=== PATIENT | male | born 2005 | race Caucasian/White ===

== ENCOUNTER 2023-05-14 15:58 | Emergency (ER) | payer OTHER, SELFPAY ==
[2023-05-14] VITALS (8 sets, daily range): BP systolic 138–183; BP diastolic 82–121; PULSE 82–104; RESP 16–20; TEMP 36.3; O2SAT 96–100
--- NOTE | ~2023-05-14 | XR_ITS ---
EXAMINATION: XR chest 2V Exam Date/Time: 05/14/2023 17:50 [employer] HISTORY: cough x3 weeks Comparison: None. RESULT: Lines, tubes, and devices: None. Lungs and pleura: Low volumes with crowding. Lordotic positioning. Lungs otherwise clear. Cardiomediastinal silhouette: Normal. Other: No acute osseous or upper abdominal finding. IMPRESSION: No acute cardiopulmonary process. Reviewed, dictated and finalized at location K. [employer]
--- NOTE | 2023-05-14 17:31 | ECG_ITS ---
Measurements Intervals [place] Rate: 86 P: 41 RI: 159 QRS: -26 QRSD: 102 T: 62 QT: 344 QTc: 412 Interpretive Statements SINUS RHYTHM INCOMPLETE RIGHT BUNDLE BRANCH BLOCK POOR R WAVE PROGRESSION, ANTERIOR LEADS BORDERLINE ECG NO PREVIOUS ECG AVAILABLE FOR COMPARISON Electronically Signed On 05-15-2023 6:12:46 ONCOLOGY NAVIGATOR by Cain Phillips D.O.
--- NOTE | 2023-05-14 17:31 | ED.URI ---
HPI - URI/Sore Throat General Chief Complaint: Upper Respiratory Infection Stated Complaint: cough/htn Time Seen by Provider: 05/14/23 17:03 History of Present Illness HPI Narrative: 16-year-old male presents with his father for evaluation for productive cough, nasal congestion and sore throat for 3 weeks. Patient states 3 weeks ago, his symptoms developed and then improved for a week. States the symptoms returned he was evaluated by a Doctor online and was prescribed an inhaler, benzonatate and Augmentin. He states he has been taking these medications for a week with some improvement, however still does not feel well. Last dose of Augmentin was this morning. He went to the [facility] this morning and was advised to come to the ED for elevated blood pressure reading of 180 systolic. Patient's father states that the patient has some issues with anxiety and panic attacks and belives that the elevated readings are secondary to this. He denies chest pain, fevers, abdominal pain, nausea, vomiting, diarrhea, urinary complaints. He does report intermittent headaches and sinus congestion with a mild sore throat. states his left ear was bothering him earlier. he also states that he has some exertional dyspnea when going up the stairs since the onset of his illness but denies dyspnea at rest. Related Data Allergies Allergy/AdvReac Type Severity Reaction Status Date / Time No Known Allergies Allergy Verified 05/14/23 16:22 Review of Systems Review of Systems: CONSTITUTIONAL: Denies fever, chills, or sweats. EYES: Denies visual changes, redness, or discharge. ENT: See HPI CARDIOVASCULAR: Denies chest pain, palpitations, or edema. RESPIRATORY: See HPI GASTROINTESTINAL: Denies abdominal pain, nausea, vomiting, or diarrhea. GENITOURINARY: Denies dysuria or hematuria. SKIN: Denies rash or itching. MUSCULOSKELETAL: Denies back pain, joint pain, or myalgia. NEUROLOGIC: Denies headache, numbness, or weakness. PSYCHIATRIC: Denies anxiety or depression. Exam Narrative: GENERAL: Well-appearing, well-nourished, and in no acute distress. Patient resting comfortably in exam bed. He is pleasant and conversational. HEAD: Normocephalic, atraumatic. EYES: PERRLA and EOMI. ENT: Nares clear, no rhinorrhea or epistaxis. Mucous membranes moist. Posterior pharynx with mild erythema. No tonsillar hypertrophy. Uvula midline. No tonsillar exudates. Bilateral TMs are ramírez nonbulging. Normal canals with mild cerumen. NECK: Supple. CHEST: Clear to auscultation. No respiratory distress. HEART: Regular rate and rhythm. No murmur heard. Normal peripheral pulses. ABDOMEN: Soft, nontender, nondistended, normal active bowel sounds. No CVA tenderness. EXTREMITIES: Normal range of motion. No edema. SKIN: Warm, dry, no rash. NEURO: No focal deficits. Alert and oriented x3. Course Vital Signs Vital signs: Vital Signs Temperature 97.3 F L 05/14/23 16:00 Pulse Rate 85 05/14/23 16:00 Respiratory Rate 20 05/14/23 16:00 Blood Pressure 179/99 H 05/14/23 16:00 Pulse Oximetry 97 05/14/23 16:00 Oxygen Delivery Room Air 05/14/23 16:00 Temperature 97.3 F L 05/14/23 16:00 Pulse Rate 82 05/14/23 19:25 Respiratory Rate 20 05/14/23 19:25 Blood Pressure 141/82 H 05/14/23 19:25 Pulse Oximetry 99 05/14/23 19:25 Oxygen Delivery Room Air 05/14/23 17:53 MDM - URI/Sore Throat MDM Narrative Medical decision making narrative: 17-year-old male reports for evaluation for an elevated blood pressure reading urgent care and 3 weeks of nasal congestion, productive cough and mild sore throat. See HPI for further history. Initial blood pressure elevated to 179/99 which has since improved to 138/83 without intervention. Remainder of vitals are unremarkable he is afebrile satting 100% on room air. He is well appearing on exam. labs with mild leukocytosis of 10.6. Chemistries unremarkable other than elevation in AST and
[2023-05-14] MEDS: ALBUTEROL SULFATE NEB 2.5 MG/3 ML INH INHALATION (17:35)
[2023-05-14] MEDS: IPRATROPIUM BR 0.02% INH SOLN 0.5 MG/2.5 ML VIAL INHALATION (17:35)
[2023-05-14 18:00] LABS: Basophils Percent Auto 0.4 % (0.2-1.2); Eosinophils Absolute Auto 0.1 K/mm3 (0-0.3); Eosinophils Percent Auto 1.2 % (0-4.4); Hematocrit 51.4 % (42.0-52.0); Hemoglobin 16.5 g/dL (14.0-18.0); Immature Granulocyte Absolute 0.04 K/mm3 (0.00-0.031); Immature Granulocyte Percent A 0.4 % (0-0.5); Lymphocytes Percent Auto 27.3 % (18.3-44.2); Mean Corpuscular HGB Conc 32.1 g/dl (32-36); Mean Corpuscular Hemoglobin 27.4 pg (26-34); Mean Corpuscular Volume 85.2 fl (80-100); Mean Platelet Volume 10.3 fl (7.4-10.4); Monocytes Absolute Auto 0.6 K/mm3 (0.1-0.6); Monocytes Percent Auto 5.6 % (2.6-8.5); Neutrophils Absolute Auto 6.9 K/mm3 (1.3-6.7); Neutrophils Percent Auto 65.1 % (45.5-73.1); Platelet Count Result 346 k/mm3 (150-375); Red Blood Count 6.03 M/mm3 (4.6-6.20); Red Cell Distribution Width 12.6 % (11.5-14.5); White Blood Count 10.6 K/mm3 (4.5-10.0)
[2023-05-14 18:10] LABS: Influenza A QL RT-PCR Negative (Negative); Influenza B QL RT-PCR Negative (Negative); RSV RNA, RT-PCR Negative (Negative); SARS-CoV-2 RNA PCR Negative (Negative)
[2023-05-14 18:11] LABS: Alanine Aminotransferase 175 U/L (6-50); Albumin Level 5.3 g/dL (3.7-5.6); Alkaline Phosphatase 69 U/L (58-237); Anion Gap 15 mmol/L (8-16); Aspartate Amino Transferase 101 U/L (17-59); Bilirubin,Total 0.7 mg/dL (0.2-1.3); Blood Urea Nitrogen 10 mg/dL (8-21); Calcium 10.3 mg/dL (8.9-10.7); Carbon Dioxide 24 mmol/L (22-30); Chloride 101 mmol/L (98-107); Estimated CRCL calculation 202 ml/min; Estimated Glomerular Filt Rate > 60; Glucose 93 mg/dL (65-110); Potassium 3.9 mmol/L (3.4-5.0); Sodium 140 mmol/L (134-143)
[2023-05-14 18:23] LABS: Monoscreen Negative (Negative); Negative Monotest Control Negative (Negative); Positive Monotest Control Positive (Positive)
[2023-05-14 18:29] LABS: Strep Group A RT-PCR NOT DETECTED (Negative)
--- NOTE | 2023-05-14 19:07 | PC.NURSE ---
Assumed care of pt from NOMAN Brown at this time.
== END 2023-05-14 19:27 | disposition home or self-care (01) ==
PROVIDERS: Emergency Provider Physician Assistant
DX: J40 Bronchitis, not specified as acute or chronic (principal); J32.9 Chronic sinusitis, unspecified; R94.5 Abnormal results of liver function studies; Z20.822 Contact with and (suspected) exposure to COVID-19; R03.0 Elevated blood-pressure reading, without diagnosis of hypertension
CPT/HCPCS: 36415; 71046; 80053; 85025; 86308; 87637; 87651; 93005; 94640; 99283